=== PATIENT | male | born 1985 | race Caucasian/White ===

== ENCOUNTER 2017-05-21 10:18 | Emergency (ER) | payer SELFPAY ==
[2017-05-21] MEDS ORDERED: Doxycycline 100 MG CAP PO SCH (11:45)
[2017-05-21 11:50] LABS: #Lymphocytes 0.8 thou/uL (1.20-3.40); #Monocytes 0.7 thou/uL (0.11-0.59); #Neutrophils 11.3 thou/uL (1.40-6.50); %Basophils 0.2 % (0.0-1.0); %Eosinophils 0.3 % (0.0-10.0); %Lymphocytes 6.2 % (21.0-51.0); %Monocytes 5.6 % (0.0-10.0); Hematocrit 40.1 % (42.0-52.0); Mean Platelet Volume 8.1 fL (7.4-10.4); Red Blood Cell (RBC) Count 4.24 mill/uL (4.70-6.10); White Blood Cell (WBC) Count 12.8 thou/uL (4.8-10.8)
[2017-05-21] MEDS ORDERED: Lidocaine 1% PF 5 ML VIAL ONE (12:01)
[2017-05-21 12:08] LABS: ALT (SGPT) 9 U/L (8-55); AST (SGOT) 16 U/L (5-34); Alkaline Phosphatase 74 U/L (40-150); Anion Gap 11 mmol/L (10-20); BUN (Urea Nitrogen) 8 mg/dL (8.9-20.6); Bilirubin, Total 0.6 mg/dL (0.2-1.2); Calc. Creatinine Clearance 0 mL/min (70-130); Calcium 9.1 mg/dL (7.8-10.44); Carbon Dioxide 26 mmol/L (22-29); Chloride 103 mmol/L (98-107); Estimated GFR-MDRD Greater than 90; Globulin 3.1 g/dL (2.4-3.5); Protein, Total 7.2 g/dL (6.0-8.3)
--- NOTE | 2017-05-21 12:11 | RAD ---
LEFT HAND THREE VIEWS: HISTORY: Left hand injury. FINDINGS: Joint spaces are preserved. No acute fracture, dislocation, or metallic foreign bodies are apparent . IMPRESSION: No acute osseous abnormalities are demonstrated. POS: CITLALI
--- NOTE | 2017-05-21 12:12 | RAD ---
RIGHT HAND THREE VIEWS: HISTORY: Right hand injury. FINDINGS: Soft tissue swelling is evident about the dorsum of the medial aspect of the hand. No acute fractur e, dislocation, or metallic foreign bodies are apparent. IMPRESSION: Soft tissue swelling. No acute osseous abnormalities are demonstrated. POS: CARLOS
[2017-05-21] MEDS ORDERED: Bacitracin Zinc 1 Packet ONE (12:27)
[2017-05-21] MEDS ORDERED: Acetaminophen 500 MG TAB ONE (13:28)
== END 2017-05-21 13:36 | disposition home or self-care (01) ==
LOC: ERS 10:18
DX: L02.512 Cutaneous abscess of left hand (principal); L03.114 Cellulitis of left upper limb; F31.9 Bipolar disorder, unspecified; F90.9 Attention-deficit hyperactivity disorder, unspecified type
CPT/HCPCS: 26010; 80053; 85025; 85652; 86140; 96361; 96365; J2001; J3370